=== PATIENT | male | born 1995 | race Caucasian/White ===

== ENCOUNTER 2018-07-12 23:39 | Emergency (ER) | payer SELFPAY ==
[~2018-07-12] VITALS: Ht 177.8 cm; Wt 136.1 kg
[~2018-07-12 23:39] MED LIST: Amphetamine Sal20 MG PO; LAMO25 PO; Loperamide2 MG PO; PENVK500 PO; Veetids 500500 MG PO; Zofran Odt4 MG PO
[2018-07-12] MEDS ORDERED: QUET200 PO (23:47)
[2018-07-13 00:08] LABS: BASOPHILS ABSOLUTE AUTO 0.04 K/mm3 (0.00-0.23); BASOPHILS PERCENT AUTO 0 % (0-2); EOSINOPHILS ABSOLUTE AUTO 0.03 K/mm3 (0.00-0.68); EOSINOPHILS PERCENT AUTO 0 % (0-6); Hemoglobin 15.5 g/dL (13.5-17.5); IMMATURE GRAN ABSOLUTE AUTO 0.05 K/mm3 (0.00-0.10); IMMATURE GRAN PERCENT AUTO 0 % (0-1); LYMPHOCYTES ABSOLUTE AUTO 1.72 K/mm3 (0.84-5.20); LYMPHOCYTES PERCENT AUTO 15 % (21-46); MONOCYTES PERCENT AUTO 4 % (4-13); Mean Corpuscular HGB 28.7 pg (26.0-34.0); Mean Corpuscular Volume 87 fL (80-100); Mean Platelet Volume 9.2 fL (9.1-12.4); NEUTROPHILS ABSOLUTE AUTO 9.17 K/mm3 (1.96-9.15); NEUTROPHILS PERCENT AUTO 80 % (41-73); Platelet Count 283 K/mm3 (150-400); RDW Coefficient Variation 12.8 % (11.7-14.2); RDW Standard Deviation 40.1 fL (35.1-46.3); White Blood Cell Count 11.41 K/mm3 (4.00-11.30)
[2018-07-13] MEDS ORDERED: Pepcid20 MG PO (00:36)
[2018-07-13 00:45] LABS: Alanine Aminotransfer (ALT/SGP 41 U/L (12-78); Alk Phos 74 U/L (50-136); Anion Gap 13 mmol/L (6-16); Aspartate Aminotrans (AST/SGOT 23 U/L (12-37); Bilirubin, Total 0.6 mg/dL (0.1-1.0); Blood Urea Nitrogen 5 mg/dL (8-24); Bun/Creatinine Ratio 5.3 (12.0-20.0); CO2, Blood 21 mmol/L (21-32); Calcium, Blood 8.6 mg/dL (8.5-10.1); Chloride, Blood 104 mmol/L (98-108); Creatinine, Blood 0.95 mg/dL (0.60-1.20); Globulin, Blood 3.9 g/dL (2.2-4.0); Glomerular Filtration Rate >60 (60-); Glucose, Blood 140 mg/dL (70-99); Potassium, Blood 3.1 mmol/L (3.5-5.5); Sodium, Blood 138 mmol/L (136-145); Total Protein, Blood 7.9 g/dL (6.4-8.2)
== END 2018-07-13 00:52 | disposition home or self-care (01) ==
LOC: ER 23:39
PROVIDERS: Physician Assistant
DX: K22.6 Gastro-esophageal laceration-hemorrhage syndrome (principal); F31.9 Bipolar disorder, unspecified; Z87.891 Personal history of nicotine dependence; Z79.899 Other long term (current) drug therapy
CPT/HCPCS: 80053; 85025; 99284

== ENCOUNTER 2024-02-07 20:47 | Emergency (ER) | payer OTHER ==
[~2024-02-07] VITALS: Ht 180.3 cm; Wt 131.5 kg
[~2024-02-07 20:47] MED LIST changes: +Pepcid20 MG PO; +QUET200 PO
[2024-02-07 21:06] VITALS: BP 177/82
[2024-02-07] MEDS ORDERED: Dexamethasone Sod Phos 10 MG/ML 1ML VIAL PO ONE (21:10)
[2024-02-07] MEDS ORDERED: Amoxicillin/Clavulanate K 875 MG Tab PO ONE (22:05)
[2024-02-07] MEDS ORDERED: AMOCLA875 PO (22:05)
== END 2024-02-07 22:10 | disposition home or self-care (01) ==
LOC: ER 20:47
DX: J02.0 Streptococcal pharyngitis (principal); F17.200 Nicotine dependence, unspecified, uncomplicated; Z79.899 Other long term (current) drug therapy
CPT/HCPCS: 87081; 87430; 99282; A9270; J1100